=== PATIENT | female | born 1970 | race Hispanic/Latino ===

== ENCOUNTER 2018-10-19 09:44 | Outpatient (CLI) | payer BC ==
--- NOTE | 2018-10-19 11:06 | MMO ---
BILATERAL MAMMOGRAMS: History: Screening mammography. Comparison: None available. Baseline study. FINDINGS: Heterogeneously dense fibroglandular tissue. No dominant mass or suspicious calcifications. Study was evaluated with the assistance of computer aided detection. IMPRESSION: BIRADS category 1 - negative. Suggest routine follow up. POS: [facility]
[2018-10-19 11:33] LABS: Hemoglobin A1c 5.3 % (4.0-6.0)
== END 2018-10-19 09:45 | disposition home or self-care (01) ==
LOC: SCSMAMMO 09:44
PROVIDERS: ATTEND Family Medicine
DX: Z12.31 Encounter for screening mammogram for malignant neoplasm of breast (principal); Z01.419 Encounter for gynecological examination (general) (routine) without abnormal findings; E16.2 Hypoglycemia, unspecified
CPT/HCPCS: 36415; 77067; 83036; 83525